=== PATIENT | female | born 1995 | race Caucasian/White ===

== ENCOUNTER 2017-07-12 05:58 | Day surgery (SDC) | payer OTHER ==
[2017-07-12] MEDS ORDERED: SOD CHLORIDE 0.9% 1,000 ML IV (07:00)
[2017-07-12] MEDS ORDERED: LIDOCAINE 2% (SDV) 5 ML INJ (07:00)
[2017-07-12] MEDS ORDERED: CEFAZOLIN 2 GM/50 ML (PMX) 50 ML IVPB (07:00)
[2017-07-12 07:17] LABS: ADD MAN DIFF? NO
[2017-07-12 07:22] LABS: INR 0.89; PROTIME 12.1 Sec (11.9-14.9); PT RATIO 0.9
[2017-07-12 07:23] LABS: PARTIAL THROMBOPLASTIN TIME 27.1 Sec (25.0-35.0)
[2017-07-12 07:24] LABS: WHITE BLOOD COUNT 8.7 10^3/ul (4.8-10.8)
[2017-07-12 07:24] LABS: BASOPHILS % 0.5 % (0.0-2.0); EOSINOPHILS # 0.2 10^3/ul (0.0-0.5); EOSINOPHILS % 1.7 % (0.0-7.0); HEMATOCRIT 39.1 % (37.0-47.0); HEMOGLOBIN 13.7 g/dl (12.0-16.0); LYMPHOCYTES # 1.3 10^3/ul (0.8-2.9); LYMPHOCYTES % 15.2 % (15.0-51.0); MEAN CORPUSCULAR HEMOGLOBIN 30.6 pg (29.0-33.0); MEAN CORPUSCULAR VOLUME 87.5 fl (82.0-101.0); MEAN PLATELET VOLUME 11.2 fl (7.4-10.4); MONOCYTE # 0.6 10^3/ul (0.3-0.9); MONOCYTES % 6.5 % (0.0-11.0); NEUTROPHIL # 6.6 10^3/ul (1.6-7.5); NEUTROPHILS % 75.8 % (39.0-77.0); PLATELET COUNT 183 10^3/UL (140-415); RED BLOOD COUNT 4.47 10^6/ul (4.20-5.40); RED CELL DISTRIBUTION WIDTH 12.3 % (11.5-14.5)
[2017-07-12 07:26] LABS: ALANINE AMINOTRANSFERASE 25 IU/L (13-69); ALBUMIN 4.5 g/dl (3.3-4.9); ALBUMIN/GLOBULIN RATIO 1.36; ALKALINE PHOSPHATASE 69 IU/L (42-121); ANION GAP 17 (8-16); ASPARTATE AMINO TRANSFERASE 22 IU/L (15-46); BILIRUBIN,INDIRECT 0.4 mg/dl (0-1.1); BILIRUBIN,TOTAL 0.4 mg/dl (0.2-1.3); CARBON DIOXIDE 26 mmol/L (21-31); CHLORIDE 102 mmol/L (97-110); GLUCOSE 95 mg/dl (70-220); TOTAL PROTEIN 7.8 g/dl (6.1-8.1)
[2017-07-12 07:28] LABS: BLOOD UREA NITROGEN 18 mg/dl (7-20); CALCIUM 9.3 mg/dl (8.4-10.2); CREATININE 0.54 mg/dl (0.44-1.00); POTASSIUM 3.9 mmol/L (3.5-5.1); SODIUM 141 mmol/L (135-144)
[2017-07-12] MEDS ORDERED: PROPOFOL 100 ML (08:21)
[2017-07-12] MEDS ORDERED: OXYCODONE/ACETAMINOPHEN (5/325) TAB PO ×2 (08:30)
[2017-07-12] MEDS ORDERED: LABETALOL HCL 20MG INJ IV (08:30)
[2017-07-12] MEDS ORDERED: MEPERIDINE 25 MG INJ IV (08:30)
[2017-07-12] MEDS ORDERED: FENTAnyl 50 MCG/ML VIAL IV ×3 (08:30)
[2017-07-12] MEDS ORDERED: ALBUTEROL 0.083% (NEB) 2.5 MG/3 ML AMP HHN (08:30)
[2017-07-12] MEDS ORDERED: METOCLOPRAMIDE 10 MG INJ IV (08:30)
[2017-07-12] MEDS ORDERED: hydrALAzine 20 MG INJ IV (08:30)
[2017-07-12] MEDS ORDERED: HYDROmorphONE (0.2 MG/ML) 10ML SYG IV ×3 (08:30)
[2017-07-12] MEDS ORDERED: DIPHENHYDRAMINE 50 MG INJ IV (08:30)
[2017-07-12] MEDS ORDERED: ONDANSETRON 4 MG INJ IV (08:30)
[2017-07-12] MEDS ORDERED: EPHEDrine SULFATE 50 MG/5 ML SYG IV (08:30)
[2017-07-12] MEDS ORDERED: KETOROLAC 30 MG INJ IV (08:30)
[2017-07-12] MEDS ORDERED: EPINEPHrine 1 MG INJ (09:10)
[2017-07-12] MEDS: BUPIVACAINE 0.5% (SDV) 30 ML INJ (09:14)
[2017-07-12] MEDS ORDERED: CEFAZOLIN 1 GM INJ (09:18)
[2017-07-12] MEDS ORDERED: DEXAMETHASONE 4 MG/ML 1 ML INJ (09:18)
[2017-07-12] MEDS ORDERED: ONDANSETRON 4 MG INJ (09:19)
[2017-07-12] MEDS ORDERED: SUGAMMADEX SODIUM 200 MG/2 ML VIAL IV (09:20)
== END 2017-07-12 11:10 | disposition home or self-care (01) ==
LOC: SDS 05:58
DX: L05.01 Pilonidal cyst with abscess (principal); J45.909 Unspecified asthma, uncomplicated
CPT/HCPCS: 10081; 80053; 84703; 85025; 85610; 85730